=== PATIENT | female | born 1990 | race Caucasian/White ===

== ENCOUNTER 2016-11-20 11:49 | Emergency (ER) | payer OTHER ==
[2016-11-20 12:34] LABS: SPECIFIC GRAVITY 1.015 (1.001-1.030); URINE BILIRUBIN NEGATIVE (NEGATIVE); URINE BLOOD 4+ (NEGATIVE); URINE GLUCOSE (UA) NEGATIVE (NEGATIVE); URINE LEUKOCYTE ESTERASE TRACE (NEGATIVE); URINE NITRITE NEGATIVE (NEGATIVE); URINE PROTEIN 1+ (NEGATIVE); URINE UROBILINOGEN 1 mg/dL (0-1 mg/dl)
[2016-11-20 12:37] LABS: HCG,QUALITATIVE URINE NEGATIVE; URINE APPEARANCE HAZY; URINE COLOR AMBER
[2016-11-20 12:45] LABS: URINE BACTERIA FEW; URINE RBC 50-60 /hpf; URINE WBC 0-1 /hpf
[2016-11-20] MEDS ORDERED: KETOROLAC TROMETHAMINE 30 MG/ML 1 ML VIAL ONE (13:27)
== END 2016-11-20 13:32 | disposition home or self-care (01) ==
LOC: ED 11:49
DX: N93.8 Other specified abnormal uterine and vaginal bleeding (principal); Z97.5 Presence of (intrauterine) contraceptive device; I10 Essential (primary) hypertension; J45.909 Unspecified asthma, uncomplicated
CPT/HCPCS: 81025; 81001; 99282; 96372; 99283; J1885

== ENCOUNTER 2016-12-07 10:34 | Emergency (ER) | payer OTHER ==
[2016-12-07] MEDS ORDERED: IBUPROFEN 800 MG TABLET ONE (11:36)
--- NOTE | 2016-12-07 12:57 | RAD ---
KNEE- LEFT 4 OR MORE VIEWS COMPARISON: Left knee 4 views, 11/28/2014 HISTORY: Patient stepped out of a pickup truck last night, and the systemic, and fell, injuring her left knee. FINDINGS: Views: Left knee AP, internal rotation, external Alignment: Normal. Bones: No acute finding. There is a bone island in the distal medial left femur. Joints: No joint effusion. Soft tissues: Normal. IMPRESSION: 1. Normal study.
== END 2016-12-07 12:15 | disposition home or self-care (01) ==
LOC: ED 10:34
DX: S83.92XA Sprain of unspecified site of left knee, initial encounter (principal); I10 Essential (primary) hypertension; J45.909 Unspecified asthma, uncomplicated; W17.89XA Other fall from one level to another, initial encounter; Y92.812 Truck as the place of occurrence of the external cause
CPT/HCPCS: 73564; 99283 ×2; A9270